=== PATIENT | male | born 1970 | race Caucasian/White ===

== ENCOUNTER 2018-05-10 18:58 | Emergency (ER) | payer BC ==
[~2018-05-10] VITALS: Ht 193 cm; Wt 96.1 kg
[2018-05-10 19:04] VITALS: BP 124/77
[2018-05-10] MEDS ORDERED: LIDOcaine 1% 30ml preserv. free vial IJ STA (19:32)
[2018-05-10] MEDS ORDERED: TETanus/Pertussis (Acell)/Diphther VAC/PF (Tdap-Adult) 0.5ml syringe IMVAC ONE (20:10)
== END 2018-05-10 20:30 | disposition home or self-care (01) ==
LOC: ER 18:58
DX: S60.352A Superficial foreign body of left thumb, initial encounter (principal); W45.8XXA Other foreign body or object entering through skin, initial encounter; Y93.89 Activity, other specified; Y92.89 Other specified places as the place of occurrence of the external cause; Y99.8 Other external cause status
CPT/HCPCS: 10120; 90471; 90715; 99284; A6449; J3490